=== PATIENT | male | born 1970 | race Hispanic/Latino ===

== ENCOUNTER 2018-10-08 04:36 | Inpatient (IN) | payer OTHER, SELFPAY ==
[~2018-10-08] VITALS: Ht 175.3 cm; Wt 124.8 kg
[2018-10-08 05:40] LABS: BASOPHILS % (AUTO) 0.9 % (0.0-5.0); EOSINOPHILS % (AUTO) 3.9 % (0.0-8.0); HEMATOCRIT 44.2 % (42-54); LYMPHOCYTES % (AUTO) 25.3 % (21.0-51.0); MEAN CORPUSCULAR HEMOGLOBIN 35.7 pg (27.0-33.0); MEAN CORPUSCULAR HGB CONC 35.4 g/dL (32.0-36.0); MEAN CORPUSCULAR VOLUME 100.9 fL (79-99); MONOCYTES % (AUTO) 11.6 % (3.0-13.0); NEUTROPHILS % (AUTO) 58.3 % (40.0-77.0); PLATELET COUNT (AUTO) 89 K/uL (130-400); RED BLOOD CELL COUNT(AUTO) 4.38 MIL/uL (4.50-6.20); RED CELL DISTRIBUTION WIDTH 13.2 % (11.0-15.5); WHITE BLOOD COUNT (AUTO) 4.8 K/uL (4.8-10.8)
[2018-10-08 05:49] LABS: CREATININE 1.8 mg/dL (0.5-1.5); POTASSIUM 3.8 mmol/L (3.5-5.1)
[2018-10-08 05:50] LABS: INR 1.18 (0.85-1.15); PARTIAL THROMBOPLASTIN TIME 34.3 SEC (26.3-35.5); PROTHROMBIN TIME 12.3 SEC (9.6-11.6)
[2018-10-08 05:56] LABS: BILIRUBIN,TOTAL 1.7 mg/dL (0.2-1.0); TOTAL PROTEIN, SERUM 8.1 g/dL (6.0-8.3)
[2018-10-08 07:12] LABS: AMPHET/METH SCREEN,URINE NEGATIVE (NEGATIVE); BARBITURATE SCREEN, URINE NEGATIVE (NEGATIVE); BENZODIAZEPINES SCREEN,URINE NEGATIVE (NEGATIVE); CANNABINOID SCREEN,URINE NEGATIVE (NEGATIVE); COCAINE SCREEN,URINE POSITIVE (NEGATIVE); OPIATE SCREEN,URINE NEGATIVE (NEGATIVE); PHENCYCLIDINE SCREEN,URINE NEGATIVE (NEGATIVE)
[2018-10-08 07:14] LABS: APPEARANCE,URINE Clear (CLEAR); BILIRUBIN,URINE Small (NEGATIVE); COLOR,URINE Dark Yellow (YELLOW); GLUCOSE, URINE (UA) 500 mg/dL (NEGATIVE); KETONES,URINE Trace mg/dL (NEGATIVE); LEUKOCYTE ESTERASE ,URINE Negative (NEGATIVE); NITRATE,URINE Negative (NEGATIVE); OCCULT BLOOD,URINE Negative (NEGATIVE); PROTEIN,URINE Trace (NEGATIVE); UROBILINOGEN,URINE >=8.0 mg/dL (0.2-1.0)
[2018-10-08 07:33] LABS: BACTERIA,URINE Rare /HPF (None Seen); MUCUS,URINE Few LPF (None Seen); RBC,URINE 0-1 /HPF (0-1); SQUAMOUS EPITHELIAL CELL,UR Rare /HPF (0-2)
[2018-10-08] MEDS ORDERED: LIDOCAINE HCL 2% VISCOUS 15 ML UDCUP ONE (07:34)
[2018-10-08] MEDS ORDERED: MAGNESIUM HYDROXIDE 30 ML/UDCUP ONE (07:34)
[2018-10-08] MEDS ORDERED: HYDRALAZINE HCL 20 MG/ML VIAL IV PRN (08:15)
[2018-10-08] MEDS ORDERED: ACETAMINOPHEN 325 MG TAB PO PRN ×2 (08:15)
[2018-10-08] MEDS ORDERED: CHLORDIAZEPOXIDE HCL 25 MG CAP PO PRN (08:15)
[2018-10-08] MEDS ORDERED: MORPHINE SULFATE 2 MG/ML 1ML SYG IV PRN (08:15)
[2018-10-08] MEDS ORDERED: ONDANSETRON HCL 4 MG/2 ML VIAL IV PRN (08:15)
[2018-10-08] MEDS ORDERED: IBUPROFEN 600 MG TABLET ONE (08:21)
[2018-10-08] MEDS: ASPIRIN 325 MG TABLET PO SCH (09:00)
[2018-10-08] MEDS: THIAMINE HCL 100 MG TABLET PO SCH (09:00)
[2018-10-08] MEDS: FOLIC ACID 1 MG TABLET PO SCH (09:00)
[2018-10-08] MEDS: LITHIUM CARBONATE 150 MG CAPSULE PO SCH ×2 (09:00→20:45)
[2018-10-08 09:25] LABS: CREATINE KINASE, TOTAL 233 U/L (21-232); MYOGLOBIN 113 ng/mL (10-92); PHOSPHORUS 3.6 mg/dL (2.5-4.9); TROPONIN I < 0.04 ng/mL (0.00-0.06)
[2018-10-08] MEDS ORDERED: ASPIRIN 325 MG TABLET ONE (10:01)
[2018-10-08] MEDS ORDERED: THIAMINE HCL 100 MG TABLET ONE (10:01)
[2018-10-08] MEDS ORDERED: SODIUM CHLORIDE 0.9% 1000ML 1,000 ML IV ONE (10:01)
[2018-10-08 12:23] LABS: TROPONIN I 0.09 ng/mL (0.00-0.06)
[2018-10-08 12:57] VITALS: BP 118/70
[2018-10-08] MEDS: SODIUM CHLORIDE 0.9% 1000ML 1,000 ML IV SCH (13:00)
--- NOTE | 2018-10-08 13:00 | NUR ---
ADMISSION PER [facility] PT AAO X 3 , NOTED NO WITHDRAWS . SITTING UP IN THE CHAIR REVIEW CARE OF PLAN AND FALL RISK AND CALL LIGHT IN REACH...
[2018-10-08] MEDS ORDERED: LITH300T3 PO (14:49)
[2018-10-08] MEDS ORDERED: CYAN250014 PO (14:49)
[2018-10-08] MEDS ORDERED: TRAZ-185 PO (14:49)
[2018-10-08] MEDS ORDERED: LISI40TA4 PO (14:49)
[2018-10-08] MEDS ORDERED: FOLI1TAB15 PO (14:49)
[2018-10-08] MEDS: NITROGLYCERIN 1GM/1 INCH PACKET TD SCH (16:15)
[2018-10-08 17:05] VITALS: BP 110/64
[2018-10-08] MEDS ORDERED: LACTULOSE 20 GM/30 ML UDCUP ONE (18:43)
[2018-10-08] MEDS ORDERED: LACTULOSE 20 GM/30 ML UDCUP PO SCH (18:45)
[2018-10-08 19:20] VITALS: BP 125/62
[2018-10-08] MEDS: TRAZODONE HCL 50 MG TAB PO SCH (20:45)
[2018-10-08 23:27] VITALS: BP 119/63
[2018-10-09] MEDS: NITROGLYCERIN 1GM/1 INCH PACKET TD SCH (00:15)
[2018-10-09] MEDS: SODIUM CHLORIDE 0.9% 1000ML 1,000 ML IV SCH ×2 (01:47→12:17)
[2018-10-09 03:25] VITALS: BP 123/70
[2018-10-09 06:25] LABS: CHOLESTEROL 119 mg/dL (<200); HDL CHOLESTEROL 47 mg/dL (29-71); LDL DIRECT 70 mg/dL (0-99); TRIGLYCERIDES 66 mg/dL (30-200)
[2018-10-09 06:27] LABS: AMMONIA 108 umol/L (11-32)
[2018-10-09 08:32] VITALS: BP 127/71
[2018-10-09] MEDS ORDERED: LACTULOSE 20 GM/30 ML UDCUP PO SCH (09:00)
[2018-10-09] MEDS: PANTOPRAZOLE SODIUM 40 MG TABLET.DR PO SCH (09:23)
[2018-10-09] MEDS: LITHIUM CARBONATE 150 MG CAPSULE PO SCH ×2 (09:23→20:57)
[2018-10-09] MEDS: ASPIRIN 325 MG TABLET PO SCH (09:23)
[2018-10-09] MEDS: FOLIC ACID 1 MG TABLET PO SCH (09:23)
[2018-10-09] MEDS: THIAMINE HCL 100 MG TABLET PO SCH (09:24)
[2018-10-09 12:14] VITALS: BP 130/67
[2018-10-09] MEDS: DILTIAZEM HCL 120 MG CAP.SR.24H PO SCH (12:16)
--- NOTE | 2018-10-09 14:43 | NUR ---
CM/IA IA DONE WITH SPOUSE AT BED SIDE, ENG SPEAKING AAOX3. INDEPENDENT, NO DME NO STAIRS, NO HH NO PORVIDER NO INSURANCE; USES [facility] FOR [facility], CONNECTED WITH [employer] FOR POSS HEPATITIS C TREATMENT, STATES DISABILITY CLAIM FOR CIRRHOSIS HAS BEEN DENIED. WANTS TO KNOW HOW TO GET DISABILIYT FOR CIRRHOSIS; ADVISED PT TO GUARD HIS HEALTH MUCH POSSIBLE; DISCUSSED THINGS THAT PUT LIVER AT RISK; TYLENOL, IBUPROFEN ALEVE, CLEANING SUPPIES ETOH, SOLVENTS, COAINE. ADVISED AGAINST COCAINE USE. VERUBALIZED UNDERSTANDING Addendum: 10/09/18 at 1448 by GAY GOODRICH RN CM Amended: Links added.
[2018-10-09 17:08] VITALS: BP 110/62
--- NOTE | 2018-10-09 19:20 | NUR ---
MD SOLIS As per order, MD Solis wanted to be call and read the 2DECHO results to him. Day shift nurse JIMMIE Kramer spoke and read 2DECHO results to MD Solis. No orders were obtained.
[2018-10-09 19:25] VITALS: BP 127/64
[2018-10-09] MEDS: TRAZODONE HCL 50 MG TAB PO SCH (20:57)
[2018-10-09] MEDS: LACTULOSE 20 GM/30 ML UDCUP PO SCH (20:57)
[2018-10-09] MEDS ORDERED: ATORVASTATIN CALCIUM 40 MG TABLET PO SCH (21:00)
[2018-10-09 23:35] VITALS: BP 108/56
[2018-10-10 03:30] VITALS: BP 102/60
[2018-10-10] MEDS: SODIUM CHLORIDE 0.9% 1000ML 1,000 ML IV SCH (03:35)
[2018-10-10 05:22] LABS: MEAN CORPUSCULAR HEMOGLOBIN 35.8 pg (27.0-33.0); MEAN CORPUSCULAR HGB CONC 35.8 g/dL (32.0-36.0); MEAN CORPUSCULAR VOLUME 100.1 fL (79-99); NUCLEATED RED BLOOD CELLS 0.1 % (0.0-0.19); PLATELET COUNT (AUTO) 69 K/uL (130-400); RED BLOOD CELL COUNT(AUTO) 3.79 MIL/uL (4.50-6.20); RED CELL DISTRIBUTION WIDTH 12.5 % (11.0-15.5); WHITE BLOOD COUNT (AUTO) 3.6 K/uL (4.8-10.8)
[2018-10-10 05:34] LABS: INR 1.21 (0.85-1.15); PARTIAL THROMBOPLASTIN TIME 35.4 SEC (26.3-35.5); PROTHROMBIN TIME 12.7 SEC (9.6-11.6)
[2018-10-10 05:38] LABS: CREATININE 1.1 mg/dL (0.5-1.5); MAGNESIUM 1.6 mg/dL (1.80-2.40); PHOSPHORUS 3.1 mg/dL (2.5-4.9); POTASSIUM 3.9 mmol/L (3.5-5.1)
[2018-10-10 06:06] LABS: B-TYPE NATRIURETIC PEPTIDE 15 pg/mL (0-100)
[2018-10-10 07:00] VITALS: BP 115/53
--- NOTE | 2018-10-10 07:30 | NUR ---
OBSERVED SITTING IN THE CHAIR WATCHING TV, IVF INFUSING WITHOUT PROBLEM, STABLE ON ROOM AIR AND DENIES ANY CP. PLAN OF CARE WAS DISCUSSED WITH HIM AND HE VOICED UNDERSTANDING.
--- NOTE | 2018-10-10 08:14 | NUR ---
AMBULATING AROUND THE HALLWAY WITH GIRLFRIEND TOLERATING THE ACTIVITY WELL.
[2018-10-10] MEDS: LACTULOSE 20 GM/30 ML UDCUP PO SCH (08:33)
[2018-10-10] MEDS: THIAMINE HCL 100 MG TABLET PO SCH (08:34)
[2018-10-10] MEDS: ASPIRIN 325 MG TABLET PO SCH (08:34)
[2018-10-10] MEDS: LITHIUM CARBONATE 150 MG CAPSULE PO SCH (08:34)
[2018-10-10] MEDS: PANTOPRAZOLE SODIUM 40 MG TABLET.DR PO SCH (08:35)
[2018-10-10] MEDS: FOLIC ACID 1 MG TABLET PO SCH (08:35)
[2018-10-10] MEDS: DILTIAZEM HCL 120 MG CAP.SR.24H PO SCH (08:35)
[2018-10-10 11:00] VITALS: BP 124/70
[2018-10-10] MEDS ORDERED: MAGNESIUM 2GM PREMIX 50ML 50 ML IV PRN (14:45)
[2018-10-10] MEDS ORDERED: Thiamine Hcl PO (15:00)
[2018-10-10] MEDS ORDERED: DILT120C89 PO (15:00)
[2018-10-10] MEDS ORDERED: FOLI1TAB15 PO (15:00)
[2018-10-10] MEDS ORDERED: LACT PO (15:00)
[2018-10-10] MEDS ORDERED: NEOM500T PO (15:00)
--- NOTE | 2018-10-10 15:10 | NUR ---
DR URBINA ROUNDED ON THE PATIENT AND THE PLAN IS TO COVER MAGNESIUM AND DISCHARGE HOME TODAY. PLAN WAS DISCUSSED WITH THE PATIENT AND HE VOICED UNDERSTANDING.
--- NOTE | 2018-10-10 18:00 | NUR ---
DISCHARGE INSTRUCTIONS WERE EXPLAINED IN DEPTH TO THE PATIENT, SCHEDULED FOLLOW-UP WAS GIVEN TO HIM WITH THE PRESCRIPTIONS AND HE VERBALIZED UNDERSTANDING. IV ACCESS WAS REMOVED WITHOUT ANY COMPLICATION AND THE PATIENT WAS ASSISTED TO EXIT THE UNIT VIA WHEELCHAIR TO THE LOBBY TO HIS FAMILY.
[2018-10-10] MEDS ORDERED: LACTULOSE 20 GM/30 ML UDCUP PO SCH (21:00)
[2018-10-10] MEDS ORDERED: NEOMYCIN SULFATE 500 MG TAB PO SCH (21:00)
== END 2018-10-10 17:58 | disposition home or self-care (01) | DRG 311 ==
LOC: EDH 04:36 → EDHIP 04:37 → 3AH 12:20
PROVIDERS: ADMIT Internal Medicine; ATTEND Internal Medicine
DX: I24.9 Acute ischemic heart disease, unspecified (principal); F14.10 Cocaine abuse, uncomplicated; D69.6 Thrombocytopenia, unspecified; I10 Essential (primary) hypertension; R06.09 Other forms of dyspnea; F10.20 Alcohol dependence, uncomplicated; F17.200 Nicotine dependence, unspecified, uncomplicated; F31.9 Bipolar disorder, unspecified; K70.30 Alcoholic cirrhosis of liver without ascites; B19.20 Unspecified viral hepatitis C without hepatic coma; Y90.6 Blood alcohol level of 120-199 mg/100 ml; K21.9 Gastro-esophageal reflux disease without esophagitis; Z82.49 Family history of ischemic heart disease and other diseases of the circulatory system; Z83.3 Family history of diabetes mellitus; Z87.11 Personal history of peptic ulcer disease; Z71.41 Alcohol abuse counseling and surveillance of alcoholic; Z71.51 Drug abuse counseling and surveillance of drug abuser
CPT/HCPCS: 36415; 71045; 80048; 80053; 80061; 80178; 80305; 81001; 82140; 82270; 82550; 83036; 83735; 83874; 83880; 84100; 84484; 85025; 85027; 85610; 85730; 93005; 93306; G0378; G0480; J3475; J7030

== ENCOUNTER 2024-01-02 20:54 | Emergency (ER) | payer MEDICAID ==
[~2024-01-02] VITALS: Ht 177.8 cm; Wt 127.0 kg
[~2024-01-02 20:54] MED LIST: ACAR25TA2 PO; DICL100G60 TP; EPLE25TA10 PO; FOLI1TAB15 PO; FURO40TA5 PO; HYDR-3421 PO; LACT10SO9 PO; MELA10CA2 PO; METF-444 PO; MILK500C PO; NALT50TA PO; PANT40TA55 PO; POLY17PO52 PO; POTA-364 PO; QUET50TA24 PO; RIFA550T PO; SLOMG PO; Thiamine Hcl PO
[2024-01-02 21:24] VITALS: BP 114/60; PULSE 111; RESP 18; O2SAT 97
[2024-01-02 21:46] LABS: BASOPHILS # (AUTO) 0.01 K/uL (0.00-0.20); BASOPHILS % (AUTO) 0.2 % (0.0-5.0); EOSINOPHILS # (AUTO) 0.03 K/uL (0.00-0.70); EOSINOPHILS % (AUTO) 0.5 % (0.0-8.0); HEMATOCRIT 35.8 % (42-54); IMMATURE GRANULOCYTE ABSOLUTE 0.04 K/uL (0-1); LYMPHOCYTES # (AUTO) 0.3 K/uL (1.0-4.8); LYMPHOCYTES % (AUTO) 3.8 % (21.0-51.0); MEAN CORPUSCULAR HEMOGLOBIN 33.9 pg (27.0-33.0); MEAN CORPUSCULAR HGB CONC 36.3 g/dL (32.0-36.0); MEAN CORPUSCULAR VOLUME 93.5 fL (79-99); MONOCYTES # (AUTO) 0.4 K/uL (0.1-1.0); MONOCYTES % (AUTO) 6.3 % (3.0-13.0); NEUTROPHILS # (AUTO) 5.8 K/uL (1.8-7.7); NEUTROPHILS % (AUTO) 88.6 % (40.0-77.0); PLATELET COUNT (AUTO) 45 K/uL (130-400); RED BLOOD CELL COUNT(AUTO) 3.83 MIL/uL (4.50-6.20); RED CELL DISTRIBUTION WIDTH 14.6 % (11.0-15.5); WHITE BLOOD COUNT (AUTO) 6.5 K/uL (4.8-10.8)
[2024-01-02 22:00] LABS: CREATININE 1.3 mg/dL (0.5-1.3); POTASSIUM 3.3 mmol/L (3.5-5.1)
[2024-01-02 22:02] LABS: INR 1.31 (0.85-1.15); PROTHROMBIN TIME 15.2 SEC (9.6-11.6)
[2024-01-02 22:04] LABS: PARTIAL THROMBOPLASTIN TIME 39.2 SEC (26.3-35.5)
[2024-01-02 22:05] LABS: ALBUMIN 2.7 g/dL (3.5-5.0); BILIRUBIN,TOTAL 4.6 mg/dL (0.2-1.0); TOTAL PROTEIN, SERUM 7.1 g/dL (6.0-8.3)
[2024-01-02 22:10] LABS: PLATELET MORPHOLOGY COMMENT MARKED DECREASE
[2024-01-02 22:19] LABS: B-TYPE NATRIURETIC PEPTIDE 14 pg/mL (0-100)
[2024-01-02 23:54] LABS: ALCOHOL, BLOOD < 3 mg/dL (0-10)
[2024-01-02 23:57] LABS: AMMONIA 111 umol/L (11-32)
== END 2024-01-03 00:05 | disposition home or self-care (01) ==
LOC: EDH 20:54
DX: K74.60 Unspecified cirrhosis of liver (principal); E11.9 Type 2 diabetes mellitus without complications; Z79.84 Long term (current) use of oral hypoglycemic drugs; Z79.899 Other long term (current) drug therapy
CPT/HCPCS: 36415; 71045; 80053; 82140; 83605; 83880; 84484; 85025; 85610; 85730; 93005